=== PATIENT | female | born 1965 | race Caucasian/White ===

== ENCOUNTER 2022-10-08 01:22 | Emergency (ER) | payer OTHER ==
[~2022-10-08] VITALS: Ht 167.6 cm; Wt 68.0 kg
[2022-10-08 01:28] VITALS: O2SAT 96
[2022-10-08 04:15] LABS: BASOPHILS % 0.2 % (0.0-2.0); EOSINOPHILS % 0.8 % (0.0-5.0); HEMATOCRIT. 38.9 % (36.0-48.0); LYMPHOCYTES % 23.3 % (20.0-50.0); MEAN CORPUSCULAR HEMOGLOBIN 32.3 pg (28.0-32.0); MEAN CORPUSCULAR HGB CONC 35.9 g/dL (31.0-37.0); MEAN PLATELET VOLUME 6.9 fl (7.4-10.4); MONOCYTES % 4.1 % (2.0-8.0); NEUTROPHILS % 71.6 % (40.0-76.0); PLATELET 397 x1000/uL (130-400); RED BLOOD CELL COUNT 4.32 mill/uL (4.2-5.4); RED CELL DISTRIBUTION WIDTH 13.1 % (11.6-14.6)
[2022-10-08 04:16] LABS: ALANINE AMINOTRANSFERASE 29 IU/L (13-61); ALBUMIN 4.3 g/dL (3.4-5.0); ASPARTATE AMINOTRANSFERASE 39 IU/L (15-37); BILIRUBIN TOTAL 0.5 mg/dL (0.1-1.0); CARBON DIOXIDE 21 mEq/L (21-32); CHLORIDE 93 mEq/L (98-107); CREATININE 0.6 mg/dL (0.6-1.3); GLUCOSE 135 mg/dL (70-105); INDEX HEMOLYSI 4 (1-3); INDEX ICTERIC 1 (1-4); INDEX LIPEMIC 1 (1-3); NT PRO B-TYPE NATRIURETIC PEP 212 pg/mL (5-125); PROTEIN TOTAL 8.6 g/dL (6.0-8.3); SODIUM 123 mEq/L (136-145); TROPONIN I HIGH SENSITIVITY 21 ng/L (<54); UREA NITROGEN BLOOD 6 mg/dL (7-21)
[2022-10-08 05:21] LABS: POTASSIUM 4.3 mEq/L (3.5-5.1)
[2022-10-08 05:38] LABS: TROPONIN I HIGH SENSITIVITY 22 ng/L (<54)
[2022-10-08] MEDS ORDERED: KETOROLAC 60MG/2ML VIAL IM ONE (05:45)
[2022-10-08 06:00] VITALS: BP 170/93
[2022-10-08] MEDS ORDERED: METOCLOPRAMIDE HCL 10MG TABLET PO ONE (06:00)
[2022-10-08] MEDS ORDERED: IBUP-2028 PO (06:12)
[2022-10-08 06:39] VITALS: PULSE 86; RESP 16; TEMP 98.4
== END 2022-10-08 06:30 | disposition home or self-care (01) ==
LOC: ER 01:22
DX: R51.9 Headache, unspecified (principal); I10 Essential (primary) hypertension
CPT/HCPCS: 80053; 83880; 85025; 84484; 36415; 71045; 96372; 99285; J8597; J1885; Z7610